=== PATIENT | female | born 1940 | race Caucasian/White ===

== ENCOUNTER → 2016-05-12 | Outpatient (CLI) | payer MEDICARE, OTHER | LOC: KOH-I 15:50 | DX: M79.605 Pain in left leg (principal) | CPT/HCPCS: 93971 ==

== ENCOUNTER → 2020-07-30 | Outpatient (CLI) | payer MEDICARE, OTHER ==
[~2020-07-30] MED LIST: ALL DAY ALLERGY10 M2 PO; AMMONIUM LAC CREAM TOP; CETIRIZINE HCL10 MG PO; ELIQUIS2.5 MG PO; EVISTA 60 MG TA60 MG PO; FLAX SEED OIL PO; HAIR, SKIN & N1 EACH PO; HYDROCOD-HOMAT1 EACH PO; LEXAPRO TAB 1010 MG PO; LEXAPRO10 MG PO; LORAZEPAM0.5 MG PO; LORTAB 5-325 M1 EACH PO; METOPROLOL SUCC25 MG PO; PERCOCET 10-321 EACH PO; STOOL SOFTENER1 EACH PO; TRAZODONE HCL100 MG PO; VITAMIN D3 PO
[2020-07-30 09:26] LABS: HEMOGLOBIN 11.3 gm/dl (12.3-15.3); RED BLOOD COUNT 3.68 M/UL (4.00-5.10); WHITE BLOOD COUNT 7.6 K/UL (4.5-11.0)
== END ==
LOC: LAB 08:56
PROVIDERS: Family Medicine
DX: I12.9 Hypertensive chronic kidney disease with stage 1 through stage 4 chronic kidney disease, or unspecified chronic kidney disease (principal); N18.9 Chronic kidney disease, unspecified; D63.1 Anemia in chronic kidney disease; E78.5 Hyperlipidemia, unspecified; E55.9 Vitamin D deficiency, unspecified
CPT/HCPCS: 36415; 80053; 80061; 82728; 83540; 83550; 83735; 85025; 85045

== ENCOUNTER → 2020-09-17 | Outpatient (CLI) | payer MEDICARE, OTHER | LOC: RAD 18:16 | DX: J45.909 Unspecified asthma, uncomplicated (principal); R91.8 Other nonspecific abnormal finding of lung field | CPT/HCPCS: 71046 ==

== ENCOUNTER → 2020-12-10 | Outpatient (CLI) | payer MEDICARE, OTHER | LOC: EXRD 11-12 13:00 | DX: Z13.820 Encounter for screening for osteoporosis (principal); M85.80 Other specified disorders of bone density and structure, unspecified site; Z78.0 Asymptomatic menopausal state; M81.0 Age-related osteoporosis without current pathological fracture | CPT/HCPCS: 77080 ==

== ENCOUNTER → 2021-01-15 | Outpatient (CLI) | payer MEDICARE, OTHER ==
[~2021-01-15] VITALS: Ht 157.5 cm; Wt 65.8 kg
== END ==
LOC: OPSV 13:00
DX: M81.0 Age-related osteoporosis without current pathological fracture (principal); N18.9 Chronic kidney disease, unspecified
CPT/HCPCS: 96372

== ENCOUNTER → 2021-01-31 | Outpatient (CLI) | payer MEDICARE, OTHER | LOC: RAD 12:19 | DX: L03.115 Cellulitis of right lower limb (principal); S81.801A Unspecified open wound, right lower leg, initial encounter | CPT/HCPCS: 73590 ==

== ENCOUNTER → 2021-06-30 | Outpatient (CLI) | payer MEDICARE | LOC: RAD 15:13 | DX: M47.896 Other spondylosis, lumbar region (principal); M47.897 Other spondylosis, lumbosacral region | CPT/HCPCS: 72100; 72202 ==

== ENCOUNTER → 2021-07-16 | Outpatient (CLI) | payer MEDICARE ==
[~2021-07-16] VITALS: Ht 157.5 cm; Wt 65.8 kg
== END ==
LOC: OPSV 13:00
DX: M81.0 Age-related osteoporosis without current pathological fracture (principal)
CPT/HCPCS: 96372